=== PATIENT | male | born 1945 | race Caucasian/White ===

== ENCOUNTER 2017-03-28 13:10 | Emergency (ER) | payer MEDICARE, OTHER ==
[~2017-03-28 13:10] MED LIST: INSU100V2 SQ; LANTINJ SQ; OMEP20TA PO
[2017-03-28 13:12] VITALS: BP 136/90; PULSE 78; RESP 16; TEMP 98.1; O2SAT 98
[2017-03-28] MEDS ORDERED: LEVEMIR SQ (14:17)
[2017-03-28] MEDS ORDERED: SILVER SULFADIAZINE 1% CR 50 GM JAR TOPICAL ONE (15:00)
[2017-03-28] MEDS ORDERED: SULFAMETHOXAZOLE-TRIMETHOPRIM DS 800-160 MG TAB PO ONE (15:00)
[2017-03-28] MEDS ORDERED: IBUPROFEN 800 MG TAB PO ONE (15:00)
[2017-03-28] MEDS ORDERED: CEPHALEXIN MONOHYDRATE 500 MG CAP PO ONE (15:00)
[2017-03-28] MEDS ORDERED: SILV1CRE20 TOPICAL (15:06)
[2017-03-28] MEDS ORDERED: CEPH-460 PO (15:06)
[2017-03-28] MEDS ORDERED: BACT800T5 PO (15:06)
[2017-03-28] MEDS ORDERED: IBUP-232 PO (15:06)
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
== END 2017-03-28 15:50 | disposition home or self-care (01) ==
LOC: NEPK 13:10
DX: T54.91XA Toxic effect of unspecified corrosive substance, accidental (unintentional), initial encounter (principal); T25.622A Corrosion of second degree of left foot, initial encounter; E11.9 Type 2 diabetes mellitus without complications; Y92.29 Other specified public building as the place of occurrence of the external cause; Z79.4 Long term (current) use of insulin
CPT/HCPCS: 87070; 99285

== ENCOUNTER 2017-04-17 20:56 | Emergency (ER) | payer OTHER ==
[~2017-04-17] VITALS: Ht 170.2 cm; Wt 81.8 kg
[~2017-04-17 20:56] MED LIST changes: +BACT800T5 PO; +CEPH-460 PO; +IBUP-232 PO; -INSU100V2 SQ; -LANTINJ SQ; +LEVEMIR SQ; -OMEP20TA PO; +SILV1CRE20 TOPICAL
[2017-04-17 20:58] VITALS: BP 184/88; PULSE 78; RESP 16; TEMP 98; O2SAT 96
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
[2017-04-17] MEDS ORDERED: CEPH-460 PO (22:22)
[2017-04-17] MEDS ORDERED: BACT800T5 PO (22:22)
== END 2017-04-17 22:34 | disposition home or self-care (01) ==
LOC: NEPD 20:56
DX: L73.9 Follicular disorder, unspecified (principal); B95.61 Methicillin susceptible Staphylococcus aureus infection as the cause of diseases classified elsewhere; I10 Essential (primary) hypertension; J45.909 Unspecified asthma, uncomplicated; E78.00 Pure hypercholesterolemia, unspecified; E11.9 Type 2 diabetes mellitus without complications; K21.9 Gastro-esophageal reflux disease without esophagitis
CPT/HCPCS: 86403; 87070; 87186; 87205; 99284